=== PATIENT | male | born 1955 | race African-American/Black ===

== ENCOUNTER 2018-06-03 10:55 | Emergency (ER) | payer BC, OTHER ==
[~2018-06-03] VITALS: Ht 180.3 cm; Wt 82.0 kg
[~2018-06-03 10:55] MED LIST: ZCRUNK; [UNRECOGNIZED DRUG - OTHER]
[2018-06-03 11:02] VITALS: TEMP 36.9; Ht 180.3 cm; Wt 82.0 kg
[2018-06-03] MEDS ORDERED: AMLO5TAB3 PO (11:10)
[2018-06-03] MEDS ORDERED: DOXA-10 PO (11:10)
[2018-06-03] MEDS ORDERED: SIMV-150 PO (11:10)
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
[2018-06-03 12:37] VITALS: BP 131/103; PULSE 72; O2SAT 97
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
== END 2018-06-03 12:39 | disposition home or self-care (01) ==
LOC: C.EDB 10:56 → C.EDD 12:39
DX: R41.3 Other amnesia (principal); V18.0XXA Pedal cycle driver injured in noncollision transport accident in nontraffic accident, initial encounter; R40.2412 Glasgow coma scale score 13-15, at arrival to emergency department; I10 Essential (primary) hypertension; Z79.899 Other long term (current) drug therapy